=== PATIENT | male | born 2005 | race Caucasian/White ===

== ENCOUNTER → 2025-09-10 | Outpatient (CLI) | payer SELFPAY ==
--- NOTE | 2025-09-10 13:25 | CT_ITS ---
PROCEDURE: EXTREMITY UPPER WITHOUT CONTRA 09/10/2025 REASON FOR EXAM: EVAL MAL UNION OF DISTAL RADIUS FRACTURE TECHNIQUE: Procedure Code: CTEUWO Modality: CT Procedure: EXTREMITY UPPER WITHOUT CONTRA Coronal and Sagittal reconstruction series were provided. One or more dose reduction techniques were used (e.g., Automated exposure control, adjustment of the mA and/or kV according to patient size, use of iterative reconstruction technique. RADIATION DOSE SUMMARY: CTDlvol: 25 mGy DLP: 493 mGycm COMPARISON: September 07, 2025 FINDINGS: Bones: Bone mineralization is decreased likely on the basis of disuse. Patient is skeletally maturing. A healing fracture of the distal radius is present. The dorsal fragment is minimally depressed approximately 1-2 mm. There is a small defect at the articular surface of the distal radius that aligns with the lunate bone in the neutral position. No significant angulation is seen. No abnormality of the bones of the carpus. Joints: Mild depression of the aforementioned radial fracture extends to level of the distal radioulnar joint where there is some depression of the articular portion of the radius at the DRUJ. Soft Tissues: No foreign body. CT/Extremity Upper without Contra IMPRESSION: 1. Healing fracture distal radius. See above description. Reading Location: [facility]
== END | disposition home or self-care (01) ==
PROVIDERS: PCP Physician Assistant; Referring Provider Orthopaedic Surgery Sports Medicine; Visit Provider Orthopaedic Surgery Sports Medicine
DX: S52.502A Unspecified fracture of the lower end of left radius, initial encounter for closed fracture (principal); M25.532 Pain in left wrist
CPT/HCPCS: 73200